=== PATIENT | female | born 1980 | race African-American/Black ===

== ENCOUNTER 2017-05-10 21:46 | Emergency (ER) | payer OTHER ==
[~2017-05-10] VITALS: Ht 167.6 cm; Wt 111.1 kg
[~2017-05-10 21:46] MED LIST: CLON0.1T PO
[2017-05-10 21:48] VITALS: BP 156/99
--- NOTE | 2017-05-11 15:25 | PHYS DOC ---
Past Medical History Past Medical History: Hypertension Past Surgical History: Alcohol Use: None Drug Use: None Adult General Chief Complaint Chief Complaint: Congestion HPI HPI Patient is a 37 year old female who presents with nasal congestion, postnasal drip, productive cough and difficulty sleeping secondary to the above. Symptoms have been ongoing for the past several weeks. They are worse at night when patients attempting to sleep. Patient was treated approximately one month ago for sinusitis and placed on antibiotics which she completed. She denies sinus pain or tenderness. She is not currently on any decongestants or antihistamines. She denies fever, chills, short throat and shortness of breath. Denies wheezing. Other acute symptoms or complaints. Review of Systems Review of Systems ROS as per HPI. All other ROS are negative. Allergies Allergies Allergies Coded Allergies Type Severity Reaction Last Updated Verified No Known Drug Allergies 08/09/13 No Physical Exam Physical Exam Constitutional: Well developed, well nourished, no acute distress, non-toxic appearance. [] HENT: Normocephalic, atraumatic, bilateral external ears normal, oropharynx moist, no oral exudates, nose normal nasal congestion with mucosal erythema. No facial tenderness. [] Eyes: PERRLA, EOMI, conjunctiva normal, no discharge. [] Neck: Normal range of motion, no tenderness, supple, no stridor. [] Cardiovascular:Heart rate regular rhythm, no murmur [] Lungs & Thorax: Bilateral breath sounds clear to auscultation [] Abdomen: Bowel sounds normal, soft, no tenderness, no masses, no pulsatile masses. [] Skin: Warm, dry, no erythema, no rash. [] Back: No tenderness. [] Extremities: No tenderness, no cyanosis, no clubbing, ROM intact, no edema. [] Neurologic: Alert and oriented X 3, normal motor function, normal sensory function, no focal deficits noted. [] Psychologic: Affect normal, judgement normal, mood normal. [] Current Patient Data Vital Signs Vital Signs Date Time Temp Pulse Resp B/P (MAP) Pulse Ox O2 Delivery O2 Flow Rate FiO2 05/10/17 21:48 97.8 102 18 98 Room Air 97.8 EKG EKG [] Radiology/Procedures Radiology/Procedures [] Course & Med Decision Making Course & Med Decision Making Pertinent Labs and Imaging studies reviewed. (See chart for details) [Seasonal allergies with rhinitis. Will treat supportively with PCP follow-up] Janeen Disclaimer Dragon Disclaimer This electronic medical record was generated, in whole or in part, using a voice recognition dictation system. Departure Departure Impression: Primary Impression: Seasonal allergic rhinitis Disposition: 01 HOME, SELF-CARE Condition: GOOD Patient Instructions: Allergic Rhinitis Additional Instructions: Please take Amy, Flonase as directed for treatment of seasonal allergies and sinus disease. Use saline nasal rinses and Afrin nasal spray for temporary relief. COY STACY DO May 11, 2017 15:25
== END 2017-05-10 22:18 | disposition home or self-care (01) ==
LOC: ER 22:18
DX: J30.2 Other seasonal allergic rhinitis (principal); I10 Essential (primary) hypertension
CPT/HCPCS: 99283